=== PATIENT | female | born 1945 | race Asian ===

== ENCOUNTER 2022-08-27 21:12 | Emergency (ER) | payer OTHER ==
[~2022-08-27] VITALS: Ht 167.6 cm; Wt 44.5 kg
[2022-08-27 22:48] LABS: PLATELET COUNT 239 K/uL (152-353)
[2022-08-27 22:53] LABS: POTASSIUM 4.1 mmol/L (3.6-5.2)
[2022-08-27 23:30] VITALS: BP 122/66; TEMP 98.7
[2022-08-28] MEDS ORDERED: TYLENOL325 MG PO (08:39)
[2022-08-28] MEDS ORDERED: ATOR10TA3 PO (08:40)
[2022-08-28] MEDS ORDERED: BENZ1TAB43 PO (08:40)
[2022-08-28] MEDS ORDERED: DIVA125C PO (08:41)
[2022-08-28] MEDS ORDERED: ELIQUIS5 MG PO (08:41)
[2022-08-28] MEDS ORDERED: HALO1TAB3 PO (08:42)
[2022-08-28] MEDS ORDERED: HYDR25CA25 PO (08:43)
[2022-08-28] MEDS ORDERED: RIVA1.5C PO (08:44)
[2022-08-28] MEDS ORDERED: QUETIAPINE50 MG PO (08:44)
[2022-08-28] MEDS ORDERED: TRAZ50TA36 PO (08:45)
== END 2022-08-27 23:35 | disposition home or self-care (01) ==
LOC: ED 21:12
PROVIDERS: Emergency Medicine Emergency Medical Services
DX: Z04.6 Encounter for general psychiatric examination, requested by authority (principal); Z11.52 Encounter for screening for COVID-19; F03.90 Unspecified dementia, unspecified severity, without behavioral disturbance, psychotic disturbance, mood disturbance, and anxiety; F91.8 Other conduct disorders
CPT/HCPCS: 80053; 85027; 87635; 93005; 99283; J1630; U0003

== ENCOUNTER 2022-12-07 20:29 | Emergency (ER) | payer OTHER ==
[~2022-12-07] VITALS: Ht 167.6 cm; Wt 44.5 kg
[~2022-12-07 20:29] MED LIST: ACET-206 PO; APIX1TAB PO; ATOR10TA3 PO; ATOR20TA2 PO; BENZ1TAB43 PO; CHOL100034 PO; CONGENTIN 1MG TAB PO; DIVA125C PO; DIVALPROEX250 MG PO; ELIQUIS5 MG PO; HALO1TAB3 PO; HYDR25CA25 PO; QUET100T2 PO; QUETIAPINE50 MG PO; RIVA1.5C PO; TRAZ50TA36 PO; TYLENOL325 MG PO
[2022-12-07 20:38] VITALS: BP 151/85
[2022-12-07 21:37] LABS: POTASSIUM 4.1 mmol/L (3.6-5.2)
[2022-12-07 21:38] LABS: PLATELET COUNT 259 K/uL (152-353)
[2022-12-08] MEDS ORDERED: FAMO20TA4 PO (10:23)
[2022-12-08] MEDS ORDERED: HALO5INJ3 IM (10:23)
[2022-12-08] MEDS ORDERED: RISPERDAL12.5 MG IM (10:24)
[2022-12-08] MEDS ORDERED: LIPITOR10 MG PO (10:25)
[2022-12-08] MEDS ORDERED: TYLENOL325 MG PO (10:25)
[2022-12-08] MEDS ORDERED: DIVALPROEX125 MG PO (10:26)
[2022-12-08] MEDS ORDERED: ELIQUIS5 MG PO (10:26)
== END 2022-12-07 22:22 | disposition still patient (30) ==
LOC: ED 20:29
PROVIDERS: Internal Medicine
DX: F03.911 Unspecified dementia, unspecified severity, with agitation (principal); Z11.52 Encounter for screening for COVID-19; Z04.6 Encounter for general psychiatric examination, requested by authority
CPT/HCPCS: 36415; 80053; 81002; 85027; 87635; 93005; 99282; U0003